=== PATIENT | female | born 1980 | race Caucasian/White ===

== ENCOUNTER 2016-08-29 19:50 | Emergency (ER) | payer MEDICARE, MEDICAID ==
[~2016-08-29] VITALS: Ht 167.6 cm; Wt 109.1 kg
[~2016-08-29 19:50] MED LIST: ALBU8.5H4 IH; AMOX500T2 PO; BENZ1TAB7 PO; DOXY100T2 PO; DULO30CA PO; GABA300C PO; IPRA3AMP INHALATION; PREG75CA PO; Patient Own Medication PO; ROB500 PO; TRAZ-118 PO
[2016-08-29 19:58] VITALS: BP 151/101; PULSE 110; RESP 32; O2SAT 99
[2016-08-29] MEDS ORDERED: 0.9% Sodium Chloride 1,000 ML IV ONE (20:07)
[2016-08-29 20:43] VITALS: BP 148/73; PULSE 90; RESP 26; O2SAT 97
[2016-08-29 20:45] LABS: Mean Corpuscular Hemoglobin 30.1 pg (27.0-35.0); Mean Corpuscular Volume 85.6 fL (81-100)
--- NOTE | 2016-08-29 20:59 | ED.REPORT ---
HPI-Overdose/Alcohol Toxicity Date of Service Aug 29, 2016 ED Provider: Robert Ellis MD Pt is a 36 y.o. female with an extensive mental health hx including depression, suicidal ideations, self-cutting,and borderline personality disorder and has been hospitalized over 50 times since 2013 who presents to the ED via EMS after an intentional overdose on prescription medications 1hour and 45minutes prior to arrival. Per EMS pt most likely took Ambien and duloxetine. Pt believes they took between 20-30 pills. Pt endorses to THC use and denies alcohol use. Upon arrival to the ED the pt has lacerations to their wrists and abdomen. Pt states that she wanted to "stop the voices" she also states that she is upset with her counselor and wants her medications changed. Pt provides limited hx due to mental status Nursing Notes Stated Complaint: OVERDOSE Chief Complaint: Psychiatric Complaint Nursing Notes Reviewed: Yes ([employer], [employer] not reconciled) Allergies: Coded Allergies: hydrocortisone (Verified Allergy, Severe, 08/29/16) Uncoded Allergies: FISH (Allergy, Severe, rash, "I coudnt breathe.", 03/05/13) Scheduled ([Patient Own Medication]) 1 EA EA 1 EA PO DAILY Amoxicillin (Amoxicillin) 500 Mg Tablet 500 MG PO TID Benztropine Mesylate (Benztropine Mesylate) 1 Mg Tablet 2 MG PO HS Doxycycline Hyclate (Doxycycline Hyclate) 100 Mg Tablet 100 MG PO BID Duloxetine (Cymbalta) 30 Mg Capsule.dr 60 MG PO DAILY Gabapentin (Neurontin) 300 Mg Capsule 900 MG PO BID Methocarbamol (Methocarbamol) 500 Mg Tablet 1,000 MG PO BID Pregabalin (Lyrica) 75 Mg Capsule 150 MG PO DAILY Trazodone (Trazodone) 100 Mg Tablet 300 MG PO HS Scheduled PRN Albuterol HFA (Albuterol HFA) 8.5 Gm Hfa.aer.ad 1 PUFF IH Q4 PRN PRN For Shortness of Breath Ipratropium/Albuterol Sulfate (Iprat-Albut 0.5-3(2.5) mg/3 mL Inhalant Soln) 3 Ml Ampul.neb 1.5 ML INHALATION QID PRN PRN short of breath, wheeze General Time Seen by Provider: 20:07 Chief Complaint Drug overdose, Suicidal attempt Modifying Factors: Intentional Initial Psychiatric Assessment: Danger to self, Expresses suicidal intent, Expresses suidical plan Hx Obtained From: Patient, EMS Unable to Obtain Hx: Patient condition, Mental status Arrived By: Ambulance Onset Occurred: 1 - 4 hours ago Symptom Duration: Since onset Severity: Current: No pain currently Risk-Overdose/Alcohol Tox )( Suicide Risk Stratification : Previous attempt: Prior psych admission RF Statements: Risk factors reviewed Past Medical History Past Medical History Notes: ED visit with mental health and substance abuse issues Multiple presentations with overdose and suicidal ideation (since 2012 records indicates an hospitalized 50+ times, and has had 25 involuntary detentions) Last admit 05/201612/06/15: counselor is leaving area and Shaye is having difficulty dealing with this Past Medical History Depression Suicidal ideations Self-cutting borderline personality disorder Reports: GERD Past Surgical History Ankle surgery Family History Hx of family cancer Smoking History Current Every Day Smoker Social History Alcohol Use: "Social" Drug Use: Meth, THC Other Social History: Poor social support, Frequent ED visitor, Local resident Occupation lives by self, no work or school 08/11/2016 Ambulatory Status Independent Review of Systems Lacerations, self-inflicted Unable to Obtain ROS Patient condition, Mental status Psychiatric: Reports: Hallucinations, auditory, Suicidal ideation Complete sys rev & neg: except as marked. Physical Exam Initial Vital Signs Vital Signs (First) Date Time Temp Pulse Resp B/P Pulse Ox O2 Delivery O2 Flow Rate FiO2 08/29/16 19:58 37.0 110 32 151/101 99 Room Air Initial VS: Reviewed, Vital signs abnormal Head / Eyes: Atraumatic, Normocephalic Extremities: Vascular intact, Neuro intact Skin: Warm, Dry, No cyanosis General/Constitutional: Awake Patient is drowsy, does not make good eye contact will not interact or answer questions normally. Respiratory / Chest: Atraumatic, Breath sounds NL, Breath sounds = bilat, No respiratory distress Cardiovascular: No murmurs, Cap refill not delayed, Peripheral circulation NL, Pulses = bilaterally Heart Rate / Rhythm: Positive: Tachycardia Abdomen: Soft, Non-tender Patient has multiple scars across the abdomen as well as extremities, she does have new, and lacerations across the anterior abdomen which require repair. Neurologic: Oriented X3 Speech is slow, patient appears drowsy and sedated consistent with Ambien ingestion No focal deficits Abnormal Mood/Affect: Positive: Inappropriate Abnormal Thinking / Perception: Positive: Hallucinations, auditory (per patient she has voices), Insight abnormal, Judgment abnormal, Suicidal, with plan Patient says she did this because she wants her medication changed Interpretation & Diagnostics Lab Results Interpretation Result Diagram: 08/29/16203308/29/162033 Test 08/29/16 20:34 08/29/16 21:40 White Blood Count 14.7th/mm3 (3.8-10.1) Red Blood Count 4.65mil/mm3 (3.90-5.20) Hemoglobin 14.0g/dL (12.0-15.6) Hematocrit 39.8% (35.0-46.0) Mean Corpuscular Volume 85.6fL (81-100) Mean Corpuscular Hemoglobin 30.1pg (27.0-35.0) Mean Corpuscular Hemoglobin Concent 35.2% (32.0-37.0) Red Cell Distribution Width 13.6% (12.3-15.4) Platelet Count 307bil/L (150-400) Sodium Level 139mEq/L (134-144) Potassium Level 3.5mEq/L (3.5-5.2) Chloride Level 101mEq/L (97-108) Carbon Dioxide Level 22mmol/L (18-29) Blood Urea Nitrogen 7mg/dL (6-20) Creatinine 0.64mg/dL (0.57-1.00) Estimat Glomerular Filtration Rate 149mL/min (>59) Glucose Level 147mg/dL (60-99) Calcium Level 8.8mg/dL (8.5-10.1) Total Bilirubin 0.2mg/dL (0.0-1.2) Aspartate Amino Transf (AST/SGOT) 11U/L (0-50) Alanine Aminotransferase (ALT/SGPT) 8U/L (0-32) Alkaline Phosphatase 58U/L (25-150) Total Protein 6.8g/dL (6.4-8.4) Albumin 3.6g/dL (3.4-5.0) Human Chorionic Gonadotropin, Qual 0.500 (Negative) Salicylates Level < 3.0ug/mL (30-250) Acetaminophen Level < 15.0ug/mL Rx (10-25) Alcohol, Quantitative < 10mg/dL (0-10) Hold Urine Received (Received) Lab Results Interpretation: C mild leukocytosis CMP normal Alcohol negative Tylenol negative Salicylates negative U tox positive for marijuana and benzos (again patient overdosed on Ambien) ECG Interpretation ECG Interpretation: No QRS widening No toxilogical findings Time: 20:17 Interpreted by: ED physician Normal ECG Interpretation: Normal rate (of 92), Normal sinus rhythm Procedures Laceration Management Time: 22:06 Procedure Performed by: Allied health pract Consent / Setup / Site Prep: No consent - emergent, Hand hygiene observed, Stand sterile technique Location of Wound: Left anterior abdomen Wound Length: 4 cm Local Anesthesia: Lidocaine w epi 1%, 3cc, 27g needle Wound Preparation: Shurclens, Normal saline Debridement: None Foreign Body Explore / Removal: Explored for foreign body Repair Skin: Nylon (5-0) # Sutures - SubQ: 12 Closure Layers: 1 Suture Technique: Running Post-Procedure / Complications: Antibiotic oint applied, Dressing applied, No complications, Condition improved, Tolerated procedure well, Patient stable Time: 22:06 Procedure Performed by: Allied health pract Consent / Setup / Site Prep: No consent - emergent, Hand hygiene observed, Stand sterile technique Location of Wound: Left anterior abdomen Wound Length: 5 cm Local Anesthesia: Lidocaine w epi 1%, 3cc, 27g needle Wound Preparation: Shurclens, Normal saline Debridement: None Foreign Body Explore / Removal: Explored for foreign body Repair Skin: Nylon (5-0) # Sutures - SubQ: 10 Closure Layers: 1 Suture Technique: Running Post-Procedure / Complications: Antibiotic oint applied, Dressing applied, No complications, Condition improved, Tolerated procedure well, Patient stable Time: 22:07 Procedure Performed by: Allied health pract Consent / Setup / Site Prep: No consent - emergent, Hand hygiene observed, Stand sterile technique Location of Wound: Left anterior abdomen Wound Length: 5 cm Local Anesthesia: Lidocaine w epi 1%, 3cc, 27g needle Wound Preparation: Shurclens, Normal saline Debridement: None Foreign Body Explore / Removal: Explored for foreign body Repair Skin: Nylon (5-0) # Sutures - Skin: 13 Suture Technique: Running Post-Procedure / Complications: Antibiotic oint applied, Dressing applied, No complications, Condition improved, Tolerated procedure well, Patient stable Time: 22:09 Procedure Performed by: Allied health pract Consent / Setup / Site Prep: No consent - emergent, Hand hygiene observed, Stand sterile technique Location of Wound: Left anterior abdomen Wound Length: 6 cm Local Anesthesia: Lidocaine w epi 1%, 3cc, 27g needle Wound Preparation: Shurclens, Normal saline Debridement: None Foreign Body Explore / Removal: Explored for foreign body Repair Skin: Nylon (5-0) # Sutures - Skin: 15 Closure Layers: 1 Suture Technique: Running Post-Procedure / Complications: Antibiotic oint applied, Dressing applied, No complications, Condition improved, Tolerated procedure well, Patient stable Re-Eval/Medical Decision Med Decision/Clinical Course This is a 36-year-old female with extensive psychiatric and substance abuse history presents to emergency by EMS after an intentional overdose for purposes suicide, followed by intentional self injury and self cutting across the abdomen. The patient is not very cooperative providing a very useful history, she admits to intentionally taking "a bunch of pills" which someone were the sleeping pill Ambien, but she is not quite sure what all she took, how many were even when. She will report that she gave EMS was that she overdosed a little more than an hour prior to arrival in the department. He was a story of her auditory hallucinations worsening, and being upset that [facility] is not managing her medicines away she wants him to be managed, it was be replaced on benzos- despite her complete misuse of medication in the past. The patient was initially drowsy demonstrate some signs of sedation, possibly from the Ambien on arrival, but rapidly improved and had no significant or severe somnolence or airway obstruction. Initially tachycardic, but that too resolved rapidly. On exam she has has several lacerations the right arm that are recently sutured could still have the sutures in place and is still an early process of healing, but she has new sizable lacerations across the abdomen that also required suture repair. They The through the dermis, but nothing to subcutaneous tissues or into the abdomen itself. (See the procedure notes by the mid-level provider who performed the laceration repairs for further details) EKG revealed no evidence of QRS widening or toxicological findings. Blood work was normal. Patient improved continue to request new medications to help control the auditory hallucinations. U tox is positive for TCA in the benzos which are likely the Ambien. The patient's hemodynamically normal, and answering questions and alert, to be medically cleared. The [employer]'s involved he states that they tried to help his track down the [facility] bilingual sales representative-but told us the patient is involved in a special program that [facility], that there is no after-hours contact, and that the S[employer]IOR [employer]EL[employer] left a message. We contacted the [facility] they indicated they wanted us to talk to the [facility], and connected me to a women's, with whom the case was reviewed, who agrees the DCR evaluation is warranted. Wound care and wound care as indicated for the healing lacerations of the arm and the abdomen. Patient is Up-to-date on tetanus. New abdominal lacerations will require suture removal in approximately 10 days. DCR has been paged and patient is being turned over to Dr. Velásquez pending DCR eval. 0100, Dr. Jessee Velásquez: This patient was initially evaluated by Dr. Ellis, please see above. Her care is now turned over to me at change of shift while awaiting DCR evaluation. The DCR feels that she needs to be detained. We have no bed for her available here at this facility so he is currently searching for placement possibilities. 0500, Dr. Jessee Velásquez: Arrangements have been made for the patient to be placed at [place], ambulance transport leaving here around 0800. She is getting a little agitated and was given Ativan 1 mg by mouth. 0700, Dr. Jessee Velásquez: Ativan was effective in calming her. She is currently awaiting ambulance transport. 0600. Dr. Andi Narayanan: I assumed care of this patient from Dr. Velásquez at shift change. Initially plan was for observation until transfer to [place] however the patient was noted to become increasingly agitated and attempting to pull the sutures out of her arm causes of the bleed. We attempted to de- escalate the patient without success and ultimately she required 5 mg of intramuscular Haldol, 2 mg of intramuscular Ativan and 25 milligrams of intramuscular Benadryl. This provided adequate behavioral control. The patient was maintained on the monitor without any concerning changes in vital signs. She was transferred to [place] in stable condition. Andi Narayanan MD Source of Hx: Old records, EMS Re-Evaluation/Progress #1: Time of Eval: 22:13 Re-Evaluation/Progress Note: Pt is asking for medication to help with "the voices". Re-Evaluation/Progress #2: Time of Eval: 22:26 Re-Evaluation/Progress Note: Pt is requesting nicotine. Re-Evaluation/Progress #3: Time of Eval: 07:07 Re-Evaluation/Progress Note: Pt rechecked by Dr. Narayanan at change of shift. I was called to bedside because pt has been pulling out her sutures. We are working on non-pharmocologic ways to redirect her. Re-Evaluation/Progress #4: Time of Eval: 07:13 Re-Evaluation/Progress Note: Giving 5 mg Haldol, 2 mg Ativan, 25 mg Benedryll because she continues to pick out her sutures. Consultation : Call Returned at: 22:24 Note: Spoke with Nita Mayfield of [facility]. Differential Diagnosis: Positive: Overdose, intentional, Personality disorder, Suicidal gesture, Negative: Alcohol abuse Counseled Regarding: Diagnosis, Lab results, Need for follow-up, When/why to return to ED Discharge & Departure Shift Change Sign-Out Patient Care Transferred: Yes (Dr. Velásquez) Discussed Complaint(s): Yes Laboratory Evaluation: Lab evaluation discussed Procedures: Results discussed Impression: Primary Impression: Drug overdose, multiple drugs Encounter type: initial encounter Injury intent: intentional self-harm Qualified Code: T50.902A - Poisoning by unspecified drugs, medicaments and biological substances, intentional self-harm, initial encounter Additional Impressions: Suicide attempt Self-inflicted injury Laceration )( Condition at Discharge: Clear for psych facility Disposition: Transfer, Psychiatric Inpt Discharge Condition All VS Reviewed: Yes Condition: Stable Go directly to [facility] by ambulance for admission. Suture removal in 10 days. Referrals: NOPCP (PCP) Care Transferred to: Dr. Didier Narayanan Care Transferred at: 00:00 Crit Care Except Billable Proc Time Spent: 30-74 minutes Services Performed: Patient management by me, Time spent at bedside, Reviewing test results, Reviewing imaging, Discussing patient care, Documentation in record, Time with fam/surrogate Critical Care Notes: Management of acute agitation with Haldol, Ativan and Benadryl Scribe Attestation Portions of this note were transcribed by Brigido Ashby. I, Dr. Ellis personally performed the history, physical exam and medical decision-making; I reviewed and confirmed the accuracy of the information in the transcribed note. Signed by: Madelin Farris, 08/29/2016 and 2350. Robert Ellis MD Aug 29, 2016 20:59 BRIGIDO ASHBY Aug 29, 2016 21:28 Fabián Lambert PA-C Aug 29, 2016 22:10 Jessee Velásquez MD Aug 30, 2016 01:17 SARAH TIDWELL Aug 30, 2016 07:08 Andi Narayanan MD Aug 30, 2016 09:19
[2016-08-30 00:03] VITALS: BP 135/78; PULSE 62; RESP 16; O2SAT 98
[2016-08-30] MEDS ORDERED: LORazepam 1 mg Tablet PO ONE ×2 (01:50→05:30)
[2016-08-30] MEDS ORDERED: Haloperidol 5 mg/mL Inj IM PRN (07:15)
[2016-08-30 08:37] VITALS: BP 133/74; PULSE 64; RESP 16; O2SAT 98
== END 2016-08-30 08:38 | disposition other institution (70) ==
LOC: SED 19:50 → EDBD 19:50 → SED 08-30 08:38
DX: T50.902A Poisoning by unspecified drugs, medicaments and biological substances, intentional self-harm, initial encounter (principal); S31.119A Laceration without foreign body of abdominal wall, unspecified quadrant without penetration into peritoneal cavity, initial encounter; X78.9XXA Intentional self-harm by unspecified sharp object, initial encounter; Y92.9 Unspecified place or not applicable; Y93.89 Activity, other specified; Y99.8 Other external cause status; F32.9 Major depressive disorder, single episode, unspecified; F60.3 Borderline personality disorder; K21.9 Gastro-esophageal reflux disease without esophagitis; F17.200 Nicotine dependence, unspecified, uncomplicated; Z91.5 Personal history of self-harm; Z88.8 Allergy status to other drugs, medicaments and biological substances
CPT/HCPCS: 12005; 36415; 80053; 81025; 82075; 84703; 85027; 93005; 96360; 96372; 99291; G0480; J1200; J1630; J2060; J7030

== ENCOUNTER 2016-10-05 20:46 | Emergency (ER) | payer MEDICARE, MEDICAID ==
[~2016-10-05] VITALS: Ht 160 cm; Wt 136.4 kg
[2016-10-05 21:00] VITALS: BP 136/101; PULSE 92; RESP 14; RESP 4; O2SAT 95
--- NOTE | 2016-10-05 21:22 | ED.REPORT ---
HPI-Psychiatric Illness Date of Service Oct 05, 2016 ED Provider: Robert Ellis MD 36 y/o female with a history of 58 psychiatric admissions, depression, suicidal ideations, self-cutting, and borderline personality disorder presents to ED via law enforcement due to suicidal threats. Police affidavit states that patient said she would overdose on her medications or shoot herself in the head. Patient denies directly stating the threat to the face of the automotive vehicle inspector, but she does say that she would kill herself through a door that she slammed shut in front of police. At time of interview, pt denies suicidal ideation, self-harm, ingestion of any medications tonight. She states that she is currently taking her prescribed medications but does not know what they are. She becomes very uncooperative throughout the interview. Nursing Notes Stated Complaint: REFUSING TO TAKE MEDS Chief Complaint: Psychiatric Complaint Nursing Notes Reviewed: Yes ([employer], meds not reconciled) Allergies: Coded Allergies: hydrocortisone (Verified Allergy, Severe, 10/05/16) Uncoded Allergies: FISH (Allergy, Severe, rash, "I coudnt breathe.", 03/05/13) Scheduled ([Patient Own Medication]) 1 EA EA 1 EA PO DAILY Amoxicillin (Amoxicillin) 500 Mg Tablet 500 MG PO TID Benztropine Mesylate (Benztropine Mesylate) 1 Mg Tablet 2 MG PO HS Doxycycline Hyclate (Doxycycline Hyclate) 100 Mg Tablet 100 MG PO BID Duloxetine (Cymbalta) 30 Mg Capsule.dr 60 MG PO DAILY Gabapentin (Neurontin) 300 Mg Capsule 900 MG PO BID Methocarbamol (Methocarbamol) 500 Mg Tablet 1,000 MG PO BID Pregabalin (Lyrica) 75 Mg Capsule 150 MG PO DAILY Trazodone (Trazodone) 100 Mg Tablet 300 MG PO HS Scheduled PRN Albuterol HFA (Albuterol HFA) 8.5 Gm Hfa.aer.ad 1 PUFF IH Q4 PRN PRN For Shortness of Breath Ipratropium/Albuterol Sulfate (Iprat-Albut 0.5-3(2.5) mg/3 mL Inhalant Soln) 3 Ml Ampul.neb 1.5 ML INHALATION QID PRN PRN short of breath, wheeze General Time Seen by MD: 21:17 Chief Complaint Suicidal ideation Hx Obtained From: Patient, Police Unable to Obtain Hx: Uncooperative Similar Sx Previous: Yes Risk-Psychiatric Illness Suicide Risk Stratification RF Statements: Risk factors reviewed Past Medical History Past Medical History Notes: Last Admit 07/2016 Last ED visit 08/29/16 transferred to [place]. ED visit with mental health and substance abuse issues Multiple presentations with overdose and suicidal ideation (since 2012 records indicates an hospitalized 50+ times, and has had 25 involuntary detentions) 12/06/15: counselor is leaving area and Shaye is having difficulty dealing with this Past Medical History Depression Suicidal ideations Self-cutting borderline personality disorder Reports: GERD Past Surgical History Ankle surgery Family History Hx of family cancer Smoking History Current Every Day Smoker Social History Alcohol Use: "Social" Drug Use: Meth, THC Other Social History: Poor social support, Frequent ED visitor, Local resident Occupation lives by self, no work or school 08/11/2016 Ambulatory Status Independent Review of Systems Review of Systems Note: Patient became threatening, escalated to need to call code liao security alert. Unable to Obtain ROS Uncooperative Physical Exam Initial Vital Signs Vital Signs (First) Date Time Temp Pulse Resp B/P Pulse Ox O2 Delivery O2 Flow Rate FiO2 10/05/16 21:00 37.0 92 4 136/101 95 Room Air Initial VS: Reviewed, Vital signs abnormal Head / Eyes: Atraumatic, Normocephalic, PERRL ENT: Mucous membranes moist, Conjunctiva normal, No scleral icterus Neck: Supple, Full range of motion Respiratory: Breath sounds normal, Clear to auscultation, No respiratory distress Cardiovascular: Regular rate & rhythm, Heart sounds normal, Intact distal pulses Abdomen / GI: Soft, Non-tender, No guarding, No rebound, No distention Extremities: Vascular intact, Neuro intact, No swelling, No tenderness Skin: Warm, Dry, No cyanosis General/Constitutional: Awake, Alert Behavior: Positive: Aggressive, Agitated, Hostile, Uncooperative, Negative: Appears intoxicated Appearance / Presentation: Positive: Obese, Negative: Intoxicated Patient is sitting in bed, arms crossed, and is immediatley hostile because she state that she is not suicidal even though she admited it to the police. Behavior escalates during interview. Pt story does not match police Affidavit provided. Pt stated that "I did not tell the police to their face that I was suicidal", which indicates that the threat is made through closed door. At once Pt said "I'm not staying here, I'm not going to cooperate". Pt denies ingesting medciation but cannot state any of her medications. Resting respitory rate is normal indicating typo in nurse note which indicates rate of 4. Neurologic: Oriented X3, Speech NL, No motor deficits, No sensory deficits No sign of sedative use. Psychiatric: No hallucinations Abnormal Mood/Affect: Positive: Irritable Abnormal Thinking / Perception: Positive: Insight abnormal, Judgment abnormal, Suicidal, with plan Unncountable number of scars on both arms and abdomen, but none appear acute. Wounds from abdomen a month ago have healed. Interpretation & Diagnostics Lab Results Interpretation Result Diagram: 10/05/16215410/05/162154 Test 10/05/16 21:55 10/05/16 22:34 White Blood Count 10.7th/mm3 (3.8-10.1) Red Blood Count 4.44mil/mm3 (3.90-5.20) Hemoglobin 13.5g/dL (12.0-15.6) Hematocrit 38.8% (35.0-46.0) Mean Corpuscular Volume 87.4fL (81-100) Mean Corpuscular Hemoglobin 30.4pg (27.0-35.0) Mean Corpuscular Hemoglobin Concent 34.8% (32.0-37.0) Red Cell Distribution Width 13.0% (12.3-15.4) Platelet Count 244bil/L (150-400) Neutrophils (%) (Auto) 66.6% (40-74) Lymphocytes (%) (Auto) 26.5% (14-46) Monocytes (%) (Auto) 5.7% (4-12) Eosinophils (%) (Auto) 0.8% (0-5) Basophils (%) (Auto) 0.3% (0-3) Sodium Level 139mEq/L (134-144) Potassium Level 3.8mEq/L (3.5-5.2) Chloride Level 101mEq/L (97-108) Carbon Dioxide Level 26mmol/L (18-29) Blood Urea Nitrogen 7mg/dL (6-20) Creatinine 0.49mg/dL (0.57-1.00) Estimat Glomerular Filtration Rate 202mL/min (>59) Glucose Level 111mg/dL (60-99) Calcium Level 8.7mg/dL (8.5-10.1) Total Bilirubin 0.2mg/dL (0.0-1.2) Aspartate Amino Transf (AST/SGOT) 10U/L (0-50) Alanine Aminotransferase (ALT/SGPT) 7U/L (0-32) Alkaline Phosphatase 54U/L (25-150) Total Protein 7.1g/dL (6.4-8.4) Albumin 4.2g/dL (3.4-5.0) Hold Yates Top Tube Received (Received) Salicylates Level < 3.0ug/mL (30-250) Acetaminophen Level < 15.0ug/mL Rx (10-25) Alcohol, Quantitative < 10mg/dL (0-10) Hold Urine Received (Received) Lab Results Interpretation: CBC normal Ruma CMP normal Alcohol 0 Tylenol negative Salicylates negative U tox positive for marijuana negative Re-Eval/Medical Decision Med Decision/Clinical Course This is a 36-year-old female who has a long psychiatric history, with known borderline personality, and multiple ED presentations and hospitalizations. The patient according to the [facility] is on an less restrictive option following an involuntary admission last month to [place]. According to the affidavit from the police, the patient made statements regarding suicidal intent and plan to overdose on her meds to [facility] who then requested a welfare check, and when police arrived the patient apparently made suicidal statements, close a door them, and then made statements to the fact of wanting to shoot herself in the head. Daughter to the emergency part. Here when I go to interview her she is very angry and states she states she is not suicidal and has no any watches here in the department. Pointed out that she made statements to [facility], and the police affidavit indicates admitted statements to the effect of things suicidal , she claimed that she never told the police directly that she wanted to shoot herself in the head. It was then pointed out that the affidavit clearly indicates she closed the door on the police, and then made some statements- which the patient responded the police should be listening to what she is saying in her own house. The patient then immediately became uncooperative, and threatened to elope from the urgency department, at which point an initial code liao was called. The patient demonstrated no clinical signs of intoxication, and had permitted a full physical exam before attempting to elope. She has no open wounds, but is covered with old scars from previous self- inflicted wounds. The patient he escalated following the initial code liao, and became cooperative and provided a urine sample and blood work, then approximately 1520 minutes later escalated and became combative again, which point a second code liao was called and at this point the patient received Haldol and lorazepam and was moved to a seclusion room. The patient was initially cooperative in the seclusion room, but then escalated ran into the bathroom, started smashing her head against the chinchilla in the seclusion room, at which point a third code liao was called, and at this point the patient was placed in 4. restraints and received a second 5 mg dose of haloperidol. Her blood work was obtained, and was normal. Her Tylenol salicylates and alcohol were obtained given the lack of clear history is whether or not the patient actually overdosed-the patient denied taking any medicines, but is clearly not reliable. Our over several hours observation the patient demonstrated no clinical signs of intoxication, and her laboratory studies are normal. U tox is negative, alcohol is negative. [facility], who had me talk to hi [facility] videotape sales representative after reviewing the case requested that I call the DCR. I discussed the case with the DCR, who is now contacting the IOP. At this point this is a manipulative, borderline patient to his acting out, but is required 3 code Greys, is on a less restrictive option, has a police at [facility] indicating suicidal ideation at a minimum with the police encounter having occurred in the first place due to a threat of suicidality to the mental health care worker following the patient. Patient is noncooperative, combative in the department. At this point the patient's being turned over to Dr. Manzano at change of shift , pending the DCR and IOP evaluations (The DCR indicates they are requesting the IOP come in for eval) Source of Hx: Old records Re-Evaluation/Progress : Time of Eval: 23:28 Re-Evaluation/Progress Note: Patient became very agitated and started banging her head on the wall in the isolation room. Dominga yates was called and she was placed in 4 point restraints and medicated with Haldol. Consultation #1: Call Returned at: 22:41 Principle Software Engineer: Will see patient Note: [facility] confirms that she is on LRO, and is associated weith an IOP. Consultation #2: Call Returned at: 23:53 Note: Case discussed with DCR. They will force the IOP to come evaluate her. Differential Diagnosis: Positive: Personality disorder, Suicidal Counseled Regarding: Diagnosis, Lab results Discharge & Departure Shift Change Sign-Out Patient Care Transferred: Yes Discussed Complaint(s): Yes Laboratory Evaluation: Back, reviewed by me Impression: Primary Impression: Borderline personality disorder Additional Impression: Suicidal ideation Discharge Condition All VS Reviewed: Yes Condition: Stable Referrals: [facility] (PCP) Care Transferred to: Dr. Velásquez Care Transferred at: 00:00 Crit Care Except Billable Proc Time Spent: 30-74 minutes Services Performed: Patient management by me, Time spent at bedside, Reviewing test results, Reviewing imaging, Discussing patient care, Documentation in record Critical Care Notes: Acute agitation and self-harm in the form of banging head on the wall requiring Haldol Scribe Attestation Portions of this note were transcribed by Osmin Maravilla. I, Dr. Ellis personally performed the history, physical exam and medical decision -making; I reviewed and confirmed the accuracy of the information in the transcribed note. Signed by: Madelin Swann, 10/05/2016 and 2330. Robert Ellis MD Oct 05, 2016 21:22 Osmin Edmonds Oct 05, 2016 21:39 SARAH MARAVILLA Oct 05, 2016 22:32
[2016-10-05 22:03] LABS: BASOPHILS % (AUTO) 0.3 % (0-3); EOSINOPHILS % (AUTO) 0.8 % (0-5); MONOCYTES % (AUTO) 5.7 % (4-12); Mean Corpuscular Hemoglobin 30.4 pg (27.0-35.0); Mean Corpuscular Volume 87.4 fL (81-100); NEUTROPHILS % (AUTO) 66.6 % (40-74); Platelet Count 244 bil/L (150-400)
[2016-10-05] MEDS ORDERED: Haloperidol 5 mg/mL Inj IM ONE ×2 (22:25→23:15)
[2016-10-06 03:10] VITALS: BP 114/69; PULSE 65; RESP 16; O2SAT 97
== END 2016-10-06 03:12 ==
LOC: SED 20:46
DX: F60.3 Borderline personality disorder (principal); R45.851 Suicidal ideations; F17.200 Nicotine dependence, unspecified, uncomplicated; F12.10 Cannabis abuse, uncomplicated; Z78.1 Physical restraint status; Z88.8 Allergy status to other drugs, medicaments and biological substances
CPT/HCPCS: 36415; 80053; 81025; 85025; 96372; 99291; G0480; J1630; J2060

== ENCOUNTER 2016-12-28 14:53 | Emergency (ER) | payer MEDICARE, MEDICAID ==
[~2016-12-28] VITALS: Ht 167.6 cm; Wt 118.2 kg
[2016-12-28 15:09] VITALS: PULSE 82; RESP 18; O2SAT 93
--- NOTE | 2016-12-28 15:24 | ED.REPORT ---
HPI-Psychiatric Illness Date of Service December 28, 2016 ED Provider: Missy Bauer History of Present Illness: "Anant called the [employer] accommodation consultant on her because she was feeling SI."Nothing is different than her "normal suicide" has an apartment. Fabián Ny is primary care. Does not want to be admitted. Is connected with [facility]. Has a pet at home. Nursing Notes Stated Complaint: SUICIDAL IDEATION Chief Complaint: Psychiatric Complaint Nursing Notes Reviewed: Yes Allergies: Coded Allergies: hydrocortisone (Verified Allergy, Severe, 10/05/16) Uncoded Allergies: FISH (Allergy, Severe, rash, "I coudnt breathe.", 03/05/13) Scheduled ([Patient Own Medication]) 1 EA EA 1 EA PO DAILY Amoxicillin (Amoxicillin) 500 Mg Tablet 500 MG PO TID Benztropine Mesylate (Benztropine Mesylate) 1 Mg Tablet 2 MG PO HS Doxycycline Hyclate (Doxycycline Hyclate) 100 Mg Tablet 100 MG PO BID Duloxetine (Cymbalta) 30 Mg Capsule.dr 60 MG PO DAILY Gabapentin (Neurontin) 300 Mg Capsule 900 MG PO BID Methocarbamol (Methocarbamol) 500 Mg Tablet 1,000 MG PO BID Pregabalin (Lyrica) 75 Mg Capsule 150 MG PO DAILY Trazodone (Trazodone) 100 Mg Tablet 300 MG PO HS Scheduled PRN Albuterol HFA (Albuterol HFA) 8.5 Gm Hfa.aer.ad 1 PUFF IH Q4 PRN PRN For Shortness of Breath Ipratropium/Albuterol Sulfate (Iprat-Albut 0.5-3(2.5) mg/3 mL Inhalant Soln) 3 Ml Ampul.neb 1.5 ML INHALATION QID PRN PRN short of breath, wheeze General Time Seen by MD: 15:16 Chief Complaint Suicidal ideation Hx Obtained From: Patient Onset Occurred: More than a week ago... (>6 months) Symptom Duration: Since onset Risk-Psychiatric Illness Suicide Risk Stratification Suicide Risk Factors - Adult: : Family Hx of Suicide (Dad): Previous attempt: Prior psych admissionNo: Access to firearms, Alcohol use, Close associate suicide, Substance abuse RF Statements: Risk factors reviewed Past Medical History Past Medical History Notes: Last Admit 07/2016 Last ED visit 08/29/16 transferred to [place]. ED visit with mental health and substance abuse issues Multiple presentations with overdose and suicidal ideation (since 2013 records indicates an hospitalized 50+ times, and has had 25 involuntary detentions) 12/06/15: counselor is leaving area and Shaye is having difficulty dealing with this Past Medical History Depression Suicidal ideations Self-cutting borderline personality disorder Reports: GERD Past Surgical History Ankle surgery Family History Hx of family cancer Smoking History Current Every Day Smoker Social History Alcohol Use: "Social" Drug Use: Meth, THC Other Social History: Poor social support, Frequent ED visitor, Local resident Occupation lives by self, no work or school 08/11/2016 Ambulatory Status Independent Review of Systems Basic Review of Systems Eyes: Vision NL, No discharge Hematologic: No bleeding, No bruising Allergy / Immune: No allergy Physical Exam Initial Vital Signs Vital Signs (First) Date Time Temp Pulse Resp B/P Pulse Ox O2 Delivery O2 Flow Rate FiO2 12/28/16 15:09 36.7 82 18 93 Room Air 12/28/16 15:53 149/91 Initial VS: Reviewed, Vital signs normal Head / Eyes: Atraumatic, Normocephalic, PERRL ENT: Mucous membranes moist, Conjunctiva normal, No scleral icterus Neck: Supple, Non-tender, Full range of motion Respiratory: Breath sounds normal, Clear to auscultation, No respiratory distress Cardiovascular: Regular rate & rhythm, Heart sounds normal, Intact distal pulses Abdomen / GI: Soft, Non-tender, No guarding, No rebound, No distention Back: No CVA tenderness Lymphatic: No lymphadenopathy Extremities: Vascular intact, Neuro intact, No swelling, No tenderness Skin: Warm, Dry, No cyanosis General/Constitutional: Awake, Alert, No acute distress, Well appearing, Well developed, Well hydrated, Well nourished, Cooperative, Not toxic appearing Appearance / Presentation: Positive: Appears older than age, Obese multiple healed scars on bilateral arms Neurologic: Oriented X3, Speech NL, No motor deficits Abnormal Mood/Affect: Positive: Flat affect patient is at her baseline. Interpretation & Diagnostics Lab Results Interpretation Test 12/28/16 16:24 Hold Urine Received (Received) Re-Eval/Medical Decision Med Decision/Clinical Course 36 year old female with long standing mental health issues presents to the ER after being sent by her primary care provider. Patient is at her baseline. Patient has connection with [facility] and is in intensive out patient management. The team has been notified and will be checking on her. Presentation is consistent with her known personality disorder. Evualated by [employer], feel she is safe to discharge. Discharge & Departure Impression: Primary Impression: Acute situational disturbance Additional Instructions: I am sorry you have having a day that is not the best. You do need to take care of your animal. If you have any changes, please return to the ER. [facility] will call you this evening to check on you. Referrals: Fabián Ny ND EDSupervising Provider for APC: Cate Murdock MD copies to: Fabián Ny ND, Sue ARNP December 28, 2016 15:24 Missy Bauer December 28, 2016 15:24
[2016-12-28 15:53] VITALS: BP 149/91
== END 2016-12-28 16:43 | disposition home or self-care (01) ==
LOC: SED 14:53
DX: F43.0 Acute stress reaction (principal); K21.9 Gastro-esophageal reflux disease without esophagitis; F17.200 Nicotine dependence, unspecified, uncomplicated; Z91.5 Personal history of self-harm; Z88.8 Allergy status to other drugs, medicaments and biological substances

== ENCOUNTER 2017-04-13 22:30 | Emergency (ER) | payer MEDICARE, MEDICAID ==
[~2017-04-13] VITALS: Ht 167.6 cm; Wt 118.2 kg
[2017-04-13 22:35] VITALS: BP 160/95; PULSE 89; RESP 22; O2SAT 93
--- NOTE | 2017-04-13 23:19 | ED.REPORT ---
HPI-Psychiatric Illness Date of Service Apr 13, 2017 ED Provider: Andi Narayanan MD Patient is a 36 year old female with a history of schizoaffective disorder, borderline personality disorder, PTSD and previous suicide attempts who presents to the ED due to auditory hallucinations since 1200 this afternoon. She states that these voices are telling her to hurt herself or other people. Patient also complains of anxiety and insomnia. She states that she doesn't want to kill herself but isn't afraid of hurting herself. The patient reports that she took her normal medications including Trazodone, Haldol, Cymbalta and Gabapentin, which usually control the voices but they are not working today. Per her health care prepared foods production team member, he thinks she is having a breakthrough with hallucinations and was hoping to get medications that could last until Saturday until she can see her primary care physician. Nursing Notes Stated Complaint: HEARING VOICES Chief Complaint: Psychiatric Complaint Nursing Notes Reviewed: Yes Allergies: Uncoded Allergies: FISH (Allergy, Severe, rash, "I coudnt breathe.", 03/05/13) Scheduled ([Patient Own Medication]) 1 EA EA 1 EA PO DAILY Amoxicillin (Amoxicillin) 500 Mg Tablet 500 MG PO TID Benztropine Mesylate (Benztropine Mesylate) 1 Mg Tablet 2 MG PO HS Doxycycline Hyclate (Doxycycline Hyclate) 100 Mg Tablet 100 MG PO BID Duloxetine (Cymbalta) 30 Mg Capsule.dr 60 MG PO DAILY Gabapentin (Neurontin) 300 Mg Capsule 900 MG PO BID Methocarbamol (Methocarbamol) 500 Mg Tablet 1,000 MG PO BID Pregabalin (Lyrica) 75 Mg Capsule 150 MG PO DAILY Trazodone (Trazodone) 100 Mg Tablet 300 MG PO HS Scheduled PRN Albuterol HFA (Albuterol HFA) 8.5 Gm Hfa.aer.ad 1 PUFF IH Q4 PRN PRN For Shortness of Breath Ipratropium/Albuterol Sulfate (Iprat-Albut 0.5-3(2.5) mg/3 mL Inhalant Soln) 3 Ml Ampul.neb 1.5 ML INHALATION QID PRN PRN short of breath, wheeze General Time Seen by MD: 23:18 Chief Complaint Hallucinations, auditory Hx Obtained From: Patient Arrived By: Walk-in Onset Occurred: 9 - 12 hours ago Symptom Duration: Since onset Recent Healthcare: Recent doctor visit Similar Sx Previous: Yes Risk-Psychiatric Illness Suicide Risk Stratification Suicide Risk Factors - Adult: : Previous attempt: Prior psych admission RF Statements: Risk factors reviewed Past Medical History Past Medical History Notes: Last Admit 07/2016 Last ED visit 08/29/16 transferred to [place]. ED visit with mental health and substance abuse issues Multiple presentations with overdose and suicidal ideation (since 2012 records indicates an hospitalized 50+ times, and has had 25 involuntary detentions) 12/06/15: counselor is leaving area and Shaye is having difficulty dealing with this Past Medical History Depression Suicidal ideations Self-cutting borderline personality disorder schizoaffective Reports: GERD Past Surgical History Ankle surgery Family History Hx of family cancer Smoking History Current Every Day Smoker Social History Alcohol Use: "Social" Drug Use: Meth, THC Other Social History: Frequent ED visitor, Local resident Occupation lives by self, no work or school 08/11/2016 Ambulatory Status Independent Review of Systems Psychiatric: Reports: Anxiety, Hallucinations, auditory, Homicidal ideation, Insomnia, Suicidal ideation Complete sys rev & neg: except as marked. Physical Exam Initial Vital Signs Vital Signs (First) Date Time Temp Pulse Resp B/P Pulse Ox O2 Delivery O2 Flow Rate FiO2 04/13/17 22:35 36.6 89 22 160/95 93 Room Air Initial VS: Reviewed General/Constitutional: Awake, Alert Neurologic: Oriented X3, Speech NL Abnormal Mood/Affect: Positive: Flat affect Abnormal Thinking / Perception: Positive: Hallucinations, auditory suicidal thoughts without plan or intent future oriented thoughts are linear and organized Head / Eyes: Atraumatic, Normocephalic, PERRL, EOMI Respiratory / Chest: Atraumatic, Breath sounds NL, Breath sounds = bilat, No respiratory distress Cardiovascular: Heart rate NL, Regular rhythm, Heart sounds NL, No gallop, No murmurs, No rubs Skin: Warm, Dry multiple self inflicted linear laceration about her arms and abdomen in multiple stages of healing Interpretation & Diagnostics Lab Results Interpretation Result Diagram: 04/13/17 0000 04/13/17 0000 Test 04/13/17 00:00 04/13/17 23:36 04/14/17 00:00 White Blood Count 13.5th/mm3 (3.8-10.1) Red Blood Count 4.57mil/mm3 (3.90-5.20) Hemoglobin 13.7g/dL (12.0-15.6) Hematocrit 39.4% (35.0-46.0) Mean Corpuscular Volume 86.2fL (81-100) Mean Corpuscular Hemoglobin 30.0pg (27.0-35.0) Mean Corpuscular Hemoglobin Concent 34.8% (32.0-37.0) Red Cell Distribution Width 13.3% (12.3-15.4) Platelet Count 267bil/L (150-400) Neutrophils (%) (Auto) 75.8% (40-74) Lymphocytes (%) (Auto) 18.2% (14-46) Monocytes (%) (Auto) 5.1% (4-12) Eosinophils (%) (Auto) 0.6% (0-5) Basophils (%) (Auto) 0.2% (0-3) Sodium Level 139mEq/L (134-144) Potassium Level 3.8mEq/L (3.5-5.2) Chloride Level 101mEq/L (97-108) Carbon Dioxide Level 24mmol/L (18-29) Blood Urea Nitrogen 7mg/dL (6-20) Creatinine 0.64mg/dL (0.57-1.00) Estimat Glomerular Filtration Rate 149mL/min (>59) Glucose Level 115mg/dL (60-99) Calcium Level 9.5mg/dL (8.5-10.1) Total Bilirubin 0.2mg/dL (0.0-1.2) Aspartate Amino Transf (AST/SGOT) 11U/L (0-50) Alanine Aminotransferase (ALT/SGPT) 7U/L (0-32) Alkaline Phosphatase 53U/L (25-150) Total Protein 7.5g/dL (6.4-8.4) Albumin 4.1g/dL (3.4-5.0) Thyroid Stimulating Hormone (TSH) 0.578uIU/mL (0.450-4.500) Hold Urine Received (Received) Hold Jeong Top Tube Received (Received) Re-Eval/Medical Decision Med Decision/Clinical Course In summary, the patient is a 36-year-old female with past medical history significant for PTSD, borderline personality disorder and schizoaffective disorder, who presents with auditory hallucinations that tell her to hurt herself and others. The patient arrived by personal vehicle accompanied by her director of casework department from [facility]. I considered medical etiologies of the patient's symptoms including metabolic and toxicologic and none were found in my history, physical exam or lab workup. There was no indication of significant trauma on exam. No neurologic defecits to suggest [employer] mass. I obtained labs including CBC, CMP and UA to eval for organic disease. These tests were negative. I also obtained a serum ETOH level and UDS. Patient presents with exacerbation of their underlying depression/anxiety and schizoaffective disorder, however they currently deny any concrete SI/HI. They are somewhat decompensated but not at extreme risk to self or others and thus not holdable. The patient does not desire voluntary admission. He would like something to help control her symptoms they can follow up with their interest on Saturday. The patient was given Seroquel with good effect. They have outpatient resources in place. The patient's director of casework department feels that the patient is safe for discharge and the patient also feels that she can safely be discharged without harming herself. We discussed the case and agree that the patient is appropriate for outpatient management at this time. The patient was given strong return precautions including thoughts of hurting self or others. Patient feels reassured, ready for discharge and is in agreement with plan. Patient discharged home in stable condition with plans to follow up with outpatient psychiatrist. All indications for emergent re-evaluation discussed with patient prior to discharge and they expressed understanding. Re-Evaluation/Progress : Time of Eval: 00:44 Re-Evaluation/Progress Note: Discussed plan for follow up and discharge. Patient understands and agrees to plan. All questions were addressed. Counseled Regarding: Diagnosis, Lab results, Need for follow-up, When/why to return to ED Discharge & Departure Impression: Primary Impression: Schizoaffective disorder Schizoaffective disorder type: unspecified Qualified Code: F25.9 - Schizoaffective disorder, unspecified Additional Impressions: Borderline personality disorder Auditory hallucinations Acute situational disturbance )( Condition at Discharge: No danger to self, No danger to others Disposition: Home Discharge Condition All VS Reviewed: Yes Condition: Stable Additional Instructions: Thank you for seeking care at the emergency department. Continue to take your psychiatric medications as prescribed. You should follow up with your primary care physician first thing Saturday morning to discuss your medications. You should return to the Emergency department immediately if you begin to feel at risk of harming yourself, feel unsafe or feel at risk of harming others. Referrals: NOPCP (PCP) Madelin Attestation Portions of this note were transcribed by Jessica Hernandes. I, Dr. Narayanan personally performed the history, physical exam and medical decision-making; I reviewed and confirmed the accuracy of the information in the transcribed note. Signed by: Madelin Bourgeois, 04/13/17 Andi Narayanan MD Apr 13, 2017 23:19 Lavern Hernandes Apr 14, 2017 00:01
[2017-04-14 00:17] LABS: BASOPHILS % (AUTO) 0.2 % (0-3); EOSINOPHILS % (AUTO) 0.6 % (0-5); MONOCYTES % (AUTO) 5.1 % (4-12); Mean Corpuscular Volume 86.2 fL (81-100); NEUTROPHILS % (AUTO) 75.8 % (40-74); Platelet Count 267 bil/L (150-400)
[2017-04-14 01:20] VITALS: BP 141/95; PULSE 80; RESP 18; O2SAT 93
== END 2017-04-14 01:21 | disposition home or self-care (01) ==
LOC: SED 22:30
DX: F25.9 Schizoaffective disorder, unspecified (principal); F60.3 Borderline personality disorder; R44.0 Auditory hallucinations; F43.0 Acute stress reaction; F32.0 Major depressive disorder, single episode, mild; K21.9 Gastro-esophageal reflux disease without esophagitis; F17.200 Nicotine dependence, unspecified, uncomplicated; Z91.013 Allergy to seafood